=== PATIENT | female | born 1980 | race Caucasian/White ===

== ENCOUNTER 2022-09-15 01:41 | Emergency (ER) | payer SELFPAY ==
[~2022-09-15 01:41] MED LIST: PREN1TAB49 PO
--- NOTE | 2022-09-15 01:50 | NUR ---
Called patient, no response. Patient left without being triaged. ER MD aware
== END 2022-09-15 01:50 | disposition left against medical advice (07) ==
LOC: SED 01:41
DX: R33.9 Retention of urine, unspecified (principal); Z53.21 Procedure and treatment not carried out due to patient leaving prior to being seen by health care provider